=== PATIENT | female | born 1990 | race Caucasian/White ===

== ENCOUNTER → 2021-01-06 | Outpatient (CLI) | payer MEDICARE, OTHER ==
[~2021-01-06] MED LIST: AUGMENTIN 875-1 EACH PO; KEPPRA750 MG PO; LIORESAL TAB 1010 MG PO; LOPRESSOR 25 MG25 MG PO; NAPROSYN500 MG PO; PROTONIX40 MG PO; TOPAMAX50 MG PO; ZOFRAN ODT 4 MG4 MG PO; ZOFRAN4 MG PO; ZOLOFT100 MG PO; ZYRTEC10 M3 PO
== END ==
LOC: CT 08:30
DX: I67.1 Cerebral aneurysm, nonruptured (principal); I69.359 Hemiplegia and hemiparesis following cerebral infarction affecting unspecified side
CPT/HCPCS: 70496; Q9967

== ENCOUNTER → 2021-05-08 | Outpatient (CLI) | payer MEDICARE, OTHER | LOC: CT 14:34 | DX: R51.9 Headache, unspecified (principal); Z98.890 Other specified postprocedural states | CPT/HCPCS: 70470; Q9967 ==

== ENCOUNTER 2021-08-02 07:01 | Emergency (ER) | payer MEDICARE, OTHER ==
[2021-08-02 07:53] LABS: HEMOGLOBIN 15.2 gm/dl (12.3-15.3); RED BLOOD COUNT 5.23 M/UL (4.00-5.10); WHITE BLOOD COUNT 5.2 K/UL (4.5-11.0)
[2021-08-02 08:27] LABS: BUN/CREATININE RATIO 18 (0-10)
== END 2021-08-02 12:05 | disposition home or self-care (01) ==
LOC: ER1 07:01
PROVIDERS: Emergency Medicine
DX: R51.9 Headache, unspecified (principal); K21.9 Gastro-esophageal reflux disease without esophagitis; I10 Essential (primary) hypertension
CPT/HCPCS: 70450; 80053; 84703; 85025; 85652; 86140; 87040; 96374; 96375; 99284; J2270; J2405